=== PATIENT | female | born 1930 | race Caucasian/White ===

== ENCOUNTER 2019-03-21 10:41 | Day surgery (SDC) | payer MEDICARE, BC ==
[~2019-03-21] VITALS: Ht 160 cm; Wt 48.6 kg
[~2019-03-21 10:41] MED LIST: CARTIA XT180 MG PO; COUMADIN2.5 MG PO; KEFLEX250 MG PO; LISINOPRIL5 MG PO; REQUIP0.25 MG PO; ULTRAM50 MG PO
[2019-03-21 11:14] LABS: HEMATOCRIT 40.3 % (36.0-48.0); HEMOGLOBIN 13.9 g/dL (12-16); MCH 30.2 pg (26.0-34.0); MCHC 34.5 g/dL (31.0-37.0); MCV 87.6 fL (80.0-100.0); MEAN PLATELET VOLUME 10.4 fL (7.4-10.4); RBC 4.6 10x6/uL (4.00-5.40); RDW 13.9 % (11.5-14.5); WBC 13.7 10x3/uL (4.8-10.8)
[2019-03-21 11:41] LABS: INR 0.98 (0.85-1.17); PROTIME 12.5 SECONDS (11.6-15.0)
[2019-03-21 11:45] VITALS: BP 104/64; BMI 18.8
--- NOTE | 2019-03-21 14:45 | NUR ---
LG BRUISE NOTED RIGHT FOREARM POST-OP. REPORTED TO DR. WAITE AND PACU NURSES
--- NOTE | 2019-03-21 17:30 | NUR ---
PATIENT TRANSFERRED BY WHEELCHAIR TO ROOM 2212, ACCOMPANIED BY SPOUSE AND BROTHER. BEDSIDE REPORT GIVEN TO JULIÁN CHRISTIANSON RN
[2019-03-21 18:20] VITALS: BP 144/50; Ht 160 cm; Wt 48.6 kg
--- NOTE | 2019-03-21 19:00 | NUR ---
a&o x 4. supine in bed, requests help to bathroom. ambulates with walker, stand by assist. reports frequent urges to urinate, but states it only dribbles so she spends a while in the restroom. informed to pull string for call light when finished, will continue to monitor.
[2019-03-21 20:00] VITALS: BP 136/51
[2019-03-22] VITALS: BP 157/62
[2019-03-22 04:50] VITALS: BP 139/61
--- NOTE | 2019-03-22 08:00 | NUR ---
ASSESSMENT PER FLOW SHEET. PT IS WITHOUT DISTRESS.CALL LIGHT IN REACH
[2019-03-22 08:59] VITALS: BP 159/64
[2019-03-22] MEDS ORDERED: HYDROCODON-ACE1 EA10 PO (09:47)
--- NOTE | 2019-03-22 09:56 | OP ---
PATIENT NAME: ANDRES KEMP MEDICAL RECORD: [id number] :[birth year] LOCATION:[id number] ADMISSION DATE: SURGEON: RADHA DOSS MD DATE OF OPERATION: 03/21/2019 DATE OF SERVICE: 03/21/2019 PREOPERATIVE DIAGNOSIS: Right L5 radiculopathy secondary to lumbar spinal stenosis at L4-L5 and L5-S1, right. POSTOPERATIVE DIAGNOSIS: Right L5 radiculopathy secondary to lumbar spinal stenosis at L4-L5 and L5-S1, right. PROCEDURES: Lumbar laminotomy, medial facetectomy and foraminotomy L4-L5 and L5-S1 on the right with METRx retractor. SURGEON: Radha Doss MD DESCRIPTION AND TECHNIQUE: After induction of general endotracheal anesthesia, the patient was rolled prone on the John frame. Lumbar spine was prepped and draped in the usual sterile fashion. A spinal needle and fluoroscopic x-ray localized the L5 pedicle on the right side. A stab incision was created with #11 blade and series of dilators were used to advance a METRx retractor on the L5 pedicle on the right side. This was confirmed with fluoroscopic x-ray. A microscope and Midas Sang drill were used to perform a laminotomy, medial facetectomy and foraminotomy at L4-L5 on the right. The hypertrophied ligamentum flavum was removed with Cloward rongeurs. This decompressed the L5 nerve root on the right side. The retractor was tilted down inferiorly and nerve roots followed in with L5-S1 foramen on the right. Next, the retractor was tilted up to the L4-L5 interspace. Hypertrophied ligamentum flavum was removed at this interspace as well. The L5 nerve root appeared to be completely decompressed throughout its course. Meticulous hemostasis was maintained throughout the wound. The wound was irrigated with copious amounts of Ancef irrigant solution. The fascia was closed with 2-0 Vicryl suture, the subdermal layer was closed with 3-0 Vicryl suture. The skin was reapproximated with Steri-Strips and benzoin. A sterile dressing was applied to the wound. The patient was awakened in good condition, taken to recovery. All counts were reported as correct. Estimated blood loss was minimal. TRANSINT:[id number] Voice Confirmation ID: [id number] DOCUMENT ID: [id number] RADHA DOSS MD at 0956 CC: [id number] DICTATION DATE: 03/21/19 1442 WELDING INSTRUCTOR: 03/21/19 1517 [id number] [place] [address]
--- NOTE | 2019-03-22 10:15 | NUR ---
DISCHARGE INSTRUCTIONS,STATES UNDERSTANDING. IV DCD WITH CATH TIP INTACT. WAITING ON RIDE FOR TRANSPORT HOME
--- NOTE | 2019-03-22 10:57 | NUR ---
LEFT UNIT VIA WHEELCHAIR FOR TRANSPORT HOME
== END 2019-03-22 10:58 | disposition home or self-care (01) ==
LOC: D.OPS 10:41 → D.MS 10:41 → D.PAN 13:00 → D.OPS 13:00 → D.MS 17:23 → D.OPS 03-22 10:58
PROVIDERS: Anesthesiology; ATTEND Neurological Surgery
DX: M48.061 Spinal stenosis, lumbar region without neurogenic claudication (principal); M54.16 Radiculopathy, lumbar region; Z01.812 Encounter for preprocedural laboratory examination

== ENCOUNTER → 2021-01-13 17:55 | Outpatient (CLI) | payer MEDICARE, BC ==
[2019-03-21 18:20] VITALS: BMI 18.9
[~2021-01-13 17:55] MED LIST changes: +HYDROCODON-ACE1 EA10 PO
== END | disposition home or self-care (01) ==
LOC: D.LABREF 17:55
PROVIDERS: ATTEND Otolaryngology
DX: M27.2 Inflammatory conditions of jaws (principal)